=== PATIENT | male | born 1970 | race Caucasian/White ===

== ENCOUNTER 2020-10-16 17:32 | Emergency (ER) | payer OTHER ==
[~2020-10-16] VITALS: Ht 172.7 cm; Wt 92.1 kg
[2020-10-16 17:45] VITALS: BP 129/74; Ht 172.7 cm; Wt 92.1 kg
[2020-10-26] MEDS ORDERED: ATORVASTATIN CA20 M1 PO (12:38)
[2020-10-26] MEDS ORDERED: DELTASONE20 MG PO (12:40)
[2020-10-26] MEDS ORDERED: VISINE-A EYE AL15 ML OD (12:41)
== END 2020-10-16 22:21 | disposition home or self-care (01) ==
LOC: ED 17:32
DX: S60.852A Superficial foreign body of left wrist, initial encounter (principal); W45.8XXA Other foreign body or object entering through skin, initial encounter; Y93.89 Activity, other specified; Y92.89 Other specified places as the place of occurrence of the external cause; Y99.8 Other external cause status
CPT/HCPCS: 90715; J1885; J2001